=== PATIENT | female | born 1985 | race Caucasian/White ===

== ENCOUNTER 2021-03-15 07:34 | Emergency (ER) | payer SELFPAY ==
[2021-03-15] MEDS ORDERED: Sodium Chloride 0.9% 10 ML Syringe FLUSH PRN (07:57)
--- NOTE | 2021-03-15 07:57 | EDM.PDOC ---
ED HPI GENERAL MEDICAL PROBLEM - General Chief Complaint: Abdominal Pain Stated Complaint: SEVERE PAIN LOWER LEFT ABDOMEN Time Seen by Provider: 03/15/21 07:57 Source of Information: Reports: Patient, RN, RN Notes Reviewed History Limitations: Reports: No Limitations - History of Present Illness INITIAL COMMENTS - FREE TEXT/NARRATIVE: Pt presents to ER by POV with c/o sudden onset of severe sharp LLQ abdominal pain while driving to work this morning. Pt describes the pain as radiating from the left side to the LLQ. Denies fever, chills, vomiting, or back pain. Admits to nausea from the pain. Rates the pain 10/10. Nothing aggravates or alleviates her symptoms. Hx of left ovarian cyst about a year ago, no intervention or follow up. Hx of appendectomy. Pt is a G4, LMP 03/09/21. Onset: Today, Sudden Duration: Constant Location: Reports: Abdomen Quality: Reports: Ache, Sharp Severity: Severe Improves with: Reports: None Worsens with: Reports: None Associated Symptoms: Reports: No Other Symptoms Left Lower Abdomen Pain Score (Numeric/FACES): 10 - Related Data Allergies Allergy/AdvReac Type Severity Reaction Status Date / Time Sulfa (Sulfonamide Allergy Cannot Verified 03/15/21 09:29 Antibiotics) Remember Home Meds: Home Meds . [No Known Home Meds] 03/15/21 [History] Past Medical History - Past Surgical History GI Surgical History: Reports: Appendectomy Social & Family History - Family History Family Medical History: No Pertinent Family History - Tobacco Use Tobacco Use Status *Q: Current Every Day Tobacco User Tobacco Use Within Last Twelve Months: Cigarettes Packs/Tins Daily: 0.5 - Alcohol Use Alcohol Use History: Yes Alcohol Use Frequency: Socially - Recreational Drug Use Recreational Drug Use: No - Living Situation & Occupation Occupation: Employed (Nurse) ED ROS GENERAL - Review of Systems Review Of Systems: Comprehensive ROS is negative, except as noted in HPI. ED EXAM, GI/ABD - Physical Exam Exam: See Below Exam Limited By: No Limitations General Appearance: Alert, WD/WN, Anxious, Severe Distress (Due to LLQ pain), Active Emesis Eyes: Bilateral: Normal Appearance Nose: Normal Inspection Throat/Mouth: Normal Lips, Normal Voice, No Airway Compromise Head: Atraumatic, Normocephalic Neck: Normal Inspection Respiratory/Chest: No Respiratory Distress, Lungs Clear, Normal Breath Sounds, No Accessory Muscle Use, Chest Non-Tender Cardiovascular: Regular Rate, Rhythm GI/Abdominal Exam: Normal Bowel Sounds, Soft, Tender (LLQ). No: Guarding, Rigid, Rebound (Female) Exam: Deferred Rectal (Female) Exam: Deferred Back Exam: Full Range of Motion, CVA Tenderness (L). No: CVA Tenderness (R), Vertebral Tenderness Extremities: Normal Inspection Neurological: Alert, Oriented, No Motor/Sensory Deficits Psychiatric: Anxious, Tearful Skin Exam: Warm, Dry, Intact, Normal Color, No Rash Course - Vital Signs Last Recorded V/S: Last Vital Signs Temp 97 F 03/15/21 08:18 Pulse 81 03/15/21 08:18 Resp 16 03/15/21 08:18 BP 172/125 H 03/15/21 08:18 Pulse Ox 100 03/15/21 08:18 - Orders/Labs/Meds Orders: Active Orders 24 hr Category Date Time Status Peripheral IV Care [RC] . DIRECTED Care 03/15/21 07:58 Active Art Chilo Abd Pelv Scrt Cnt Comp [US] Routine Exams 03/15/21 Ordered Pelvis Non OB Ltd [US] Stat Exams 03/15/21 10:25 Ordered Transvaginal Non OB [US] Routine Exams 03/15/21 Ordered COVID-19/FLU A+B/RSV [MOLEC] Stat Lab 03/15/21 10:38 Received CULTURE URINE [RM] Stat Lab 03/15/21 08:05 Received Sodium Chloride 0.9% [Saline Flush] Med 03/15/21 07:57 Active 10 ml FLUSH ASDIRECTED PRN Peripheral IV Insertion Adult [OM.PC] Stat Oth 03/15/21 07:58 Ordered Medication Orders Sodium Chloride (Sodium Chloride 0.9% 10 Ml Syringe) 10 ml FLUSH ASDIRECTED PRN PRN Reason: Keep Vein Open Labs: Laboratory Tests 03/15/21 03/15/21 03/15/21 Range/Units 08:05 08:05 08:07 WBC 10.8 H (5.0-10.0) 10^3/uL RBC 4.57 (4.2-5.4) 10^6/uL Hgb 13.6 (12.0-16.0) g/dL Hct 41.9 (37.0-47.0) % MCV 91.7 (80-100) fL MCH 29.8 (27.0-34.0) pg MCHC 32.5 L (33.0-35.0) g/dL Plt Count 285 (150-450) 10^3/uL Neut % (Auto) 64.8 (42.2-75.2) % Lymph % (Auto) 26.0 (20.5-50.1) % [place] % (Auto) 7.3 (2-8) % Eos % (Auto) 1.5 (1.0-3.0) % Baso % (Auto) 0.4 (0.0-1.0) % Sodium (136-145) mmol/L Potassium (3.5-5.1) mmol/L Chloride (98-107) mmol/L Carbon Dioxide (21-32) mmol/L Anion Gap (7-13) mEq/L BUN (7-18) mg/dL Creatinine (0.55-1.02) mg/dL Est Cr Clr Drug Dosing mL/min Estimated GFR (MDRD) BUN/Creatinine Ratio (No establ ref range) Glucose (70-99) mg/dL Calcium (8.5-10.1) mg/dL Total Bilirubin (0.2-1.0) mg/dL AST (15-37) U/L ALT (14-59) U/L Alkaline Phosphatase (46-116) U/L Total Protein (6.4-8.2) g/dL Albumin (3.4-5.0) g/dL Globulin Albumin/Globulin Ratio Urine Color Yellow (YELLOW) Urine Appearance Slightly cloudy (CLEAR) Urine pH 5.5 (5.0-9.0) Ur Specific [place] >= 1.030 (1.005-1.030) Urine Protein Negative (NEGATIVE) Urine Glucose (UA) Negative (NEGATIVE) Urine Ketones Negative (NEGATIVE) Urine Occult Blood Small H (NEGATIVE) Urine Nitrite Negative (NEGATIVE) Urine Bilirubin Negative (NEGATIVE) Urine Urobilinogen 0.2 (0.2-1.0) mg/dL Ur Leukocyte Esterase Small H (NEGATIVE) Urine RBC 5-10 H (0-5) /HPF Urine WBC 10-20 H (0-5/HPF) /HPF Ur Epithelial Cells Many H (NOT SEEN) /HPF Amorphous Sediment Few (NOT SEEN) /HPF Urine Bacteria Moderate H (0-FEW/HPF) /HPF Urine HCG, Qual Negative 03/15/21 Range/Units 08:07 WBC (5.0-10.0) 10^3/uL RBC (4.2-5.4) 10^6/uL Hgb (12.0-16.0) g/dL Hct (37.0-47.0) % MCV (80-100) fL MCH (27.0-34.0) pg MCHC (33.0-35.0) g/dL Plt Count (150-450) 10^3/uL Neut % (Auto) (42.2-75.2) % Lymph % (Auto) (20.5-50.1) % [place] % (Auto) (2-8) % Eos % (Auto) (1.0-3.0) % Baso % (Auto) (0.0-1.0) % Sodium 142 (136-145) mmol/L Potassium 3.9 (3.5-5.1) mmol/L Chloride 104 (98-107) mmol/L Carbon Dioxide 26 (21-32) mmol/L Anion Gap 15.9 H (7-13) mEq/L BUN 16 (7-18) mg/dL Creatinine 0.87 (0.55-1.02) mg/dL Est Cr Clr Drug Dosing 89.31 mL/min Estimated GFR (MDRD) > 60 BUN/Creatinine Ratio 18.4 (No establ ref range) Glucose 111 H (70-99) mg/dL Calcium 9.1 (8.5-10.1) mg/dL Total Bilirubin 0.2 (0.2-1.0) mg/dL AST 14 L (15-37) U/L ALT 28 (14-59) U/L Alkaline Phosphatase 80 (46-116) U/L Total Protein 7.5 (6.4-8.2) g/dL Albumin 3.8 (3.4-5.0) g/dL Globulin 3.7 Albumin/Globulin Ratio 1.0 Urine Color (YELLOW) Urine Appearance (CLEAR) Urine pH (5.0-9.0) Ur Specific [place] (1.005-1.030) Urine Protein (NEGATIVE) Urine Glucose (UA) (NEGATIVE) Urine Ketones (NEGATIVE) Urine Occult Blood (NEGATIVE) Urine Nitrite (NEGATIVE) Urine Bilirubin (NEGATIVE) Urine Urobilinogen (0.2-1.0) mg/dL Ur Leukocyte Esterase (NEGATIVE) Urine RBC (0-5) /HPF Urine WBC (0-5/HPF) /HPF Ur Epithelial Cells (NOT SEEN) /HPF Amorphous Sediment (NOT SEEN) /HPF Urine Bacteria (0-FEW/HPF) /HPF Urine HCG, Qual Meds: Medications Generic Name Dose Route Start Last Admin Trade Name Dhiraj PRN Reason Stop Dose Admin Sodium Chloride 10 ml 03/15/21 07:57 Sodium Chloride 0.9% 10 Ml Syringe FLUSH ASDIRECTED PRN Keep Vein Open Discontinued Medications Generic Name Dose Route Start Last Admin Trade Name Freq PRN Reason Stop Dose Admin Fentanyl 50 mcg 03/15/21 08:38 03/15/21 08:45 Fentanyl 100 Mcg/2 Ml Sdv IVPUSH 03/15/21 08:39 50 mcg ONETIME ONE Administration Protocol Fentanyl 50 mcg 03/15/21 09:19 03/15/21 09:28 Fentanyl 100 Mcg/2 Ml Sdv IVPUSH 03/15/21 09:20 50 mcg ONETIME ONE Administration Protocol Fentanyl 100 mcg 03/15/21 10:31 03/15/21 10:37 Fentanyl 100 Mcg/2 Ml Sdv IVPUSH 03/15/21 10:32 50 mcg ONETIME ONE Administration Protocol Fentanyl 100 mcg 03/15/21 10:31 Fentanyl 100 Mcg/2 Ml Sdv IVPUSH 03/15/21 10:32 ONETIME ONE Protocol Hydromorphone HCl 1 mg 03/15/21 07:59 03/15/21 08:34 Hydromorphone 1 Mg/Ml Syringe IVPUSH 03/15/21 08:00 1 mg ONETIME ONE Administration Hydromorphone HCl 1 mg 03/15/21 08:24 03/15/21 08:25 Hydromorphone 1 Mg/Ml Syringe IVPUSH 03/15/21 08:25 1 mg ONETIME ONE Administration Sodium Chloride 1,000 mls @ 999 mls/hr 03/15/21 07:58 03/15/21 08:20 Normal Saline IV 03/15/21 08:58 999 mls/hr .BOLUS ONE Administration Sodium Chloride 1,000 mls @ 999 mls/hr 03/15/21 09:10 03/15/21 09:27 Normal Saline IV 03/15/21 10:10 999 mls/hr .BOLUS ONE Administration Ketamine HCl 50 mg 03/15/21 09:00 03/15/21 09:13 Ketamine 500 Mg/10 Ml Mdv IV 03/15/21 09:01 50 mg ONETIME ONE Administration Ketamine HCl 50 mg 03/15/21 09:15 03/15/21 09:10 Ketamine 500 Mg/10 Ml Mdv IV 03/15/21 09:16 50 mg ONETIME ONE Administration Ketorolac Tromethamine 30 mg 03/15/21 07:58 03/15/21 08:20 Ketorolac 30 Mg/Ml Sdv IVPUSH 03/15/21 07:59 30 mg ONETIME ONE Administration Ondansetron HCl 4 mg 03/15/21 07:58 03/15/21 08:23 Ondansetron 4 Mg/2 Ml Sdv IV 03/15/21 07:59 4 mg ONETIME ONE Administration Ondansetron HCl Confirm 03/15/21 09:42 03/15/21 09:47 Ondansetron 4 Mg/2 Ml Sdv Administered 03/15/21 09:43 Not Given Dose 4 mg .ROUTE .STK-MED ONE Ondansetron HCl 4 mg 03/15/21 09:45 03/15/21 09:46 Ondansetron 4 Mg/2 Ml Sdv IVPUSH 03/15/21 09:46 4 mg ONETIME ONE Administration Promethazine HCl 25 mg 03/15/21 10:17 03/15/21 10:22 Promethazine 25 Mg/Ml Sdv IM 03/15/21 10:18 25 mg ONETIME ONE Administration - Radiology Interpretation Free Text/Narrative:: [facility] [place] [facility] Final Radiology Report Call: [phone] assistance Online chat: [email or web address] Name: CECI MOYER Age: 35Years F Date: 03/15/2021 SSN: -- : [id number] Study: CT ABDOMEN PELVIS WO CONT Requesting Physician: THUY REY Images: [id number] Addl Studies: Provided Clinical History: Severe LLQ abdominal pain Contrast: Without Contrast Medium: Contrast Amount: Contrast Method: Page 1 of 2 PROCEDURE INFORMATION: Exam: CT Abdomen And Pelvis Without Contrast Exam date and time: 03/15/2021 9:33 AM Age: 35 years old Clinical indication: Abdominal pain; Localized; Left lower quadrant (llq); Prior surgery; Surgery date: 6+ months; Surgery type: Appendectomy; Additional info: Severe llq abdominal pain TECHNIQUE: Imaging protocol: Computed tomography of the abdomen and pelvis without contrast. Radiation optimization: All CT scans at this facility use at least one of these dose optimization techniques: automated exposure control; mA and/or kV adjustment per patient size (includes targeted exams where dose is matched to clinical indication); or iterative reconstruction. COMPARISON: No relevant prior studies available. FINDINGS: Limitations: None. Liver: Normal. Gallbladder and bile ducts: Normal. Pancreas: Normal. Spleen: Normal. Adrenal glands: Normal. Kidneys and ureters: Normal. Stomach and bowel: Normal. Appendix: There has been prior appendectomy. Intraperitoneal space: There is a small amount of low-density fluid in the retrouterine cul-de-sac and in the region of the left adnexa. CECI MOYER | Final Radiology Report CONFIDENTIALITY STATEMENT This report is intended only for use by the referring physician, and only in accordance with law. If you received this in error, call [phone]. Page 2 of 2 Vasculature: The vessels have normal caliber. There is mild calcification in the distal aorta and proximal right common iliac artery. Lymph nodes: None enlarged or otherwise suspicious. Urinary bladder: Normal. Reproductive: Normal appearance of the uterus and right ovary. There is a complex mass that appears to be associated with the left ovary positioned posterior and extending from just to the right of midline to left of midline got contains macro calcification and fat, overall measuring about 6.4 x 6.5 x 3.9 cm. The completely fatty component measures about 3.4 cm. The margins of the soft tissue component associated with the mass extending cephalad and to the left have a "cauliflower" appearance with irregular borders. Bones/joints: Lumbosacral disc space narrowing with endplate sclerosis and vertebral spurring. No suspicious stenosis. The bones are otherwise unremarkable. Soft tissues: No mass or abdominal hernia. IMPRESSION: 1. 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 Prompt outpatient gynecologic referral and evaluation is recommended if this finding is not previously known or previously evaluated. 2. Incidentally noted lumbosacral degenerative disc disease without malalignment or significant appearing stenosis. Thank you for allowing us to participate in the care of your patient. Dictated and Authenticated by: Travis Bagley MD 03/15/2021 10:22 AM Central Time ([place] & [place]) - Re-Assessments/Exams Free Text/Narrative Re-Assessment/Exam: 03/15/21 09:07 Pt was extraordinarily difficulty to achieve adequate pain control. After Dilaudid 2mg (1mg x2 doses), Fentanyl 50mcg, and Ketamine 100mg (50mg x2 doses) the pt could finally lay still, but continued to report pain 09/12. Concerning for kidney stone vs ovarian torsion. 03/15/21 10:[address] the pt's pain had returned and she was vomiting. Pt was given Fentanyl 50mcg IVP, and Promethazine 25mg IM. Pt continues crying, wailing, and calling out in pain. I explained to her that she is receiving multiple doses of very strong pain medications, and I have to balance her pain control with her safety due to potential for airway protection and breathing. Pt states she understands. 03/15/21 10:47 CT report called by radiologist Clay Bagley with large left ovarian mass consistent with a teratoma, concerning for malignant features, and possible torsion given the severe uncontrollable pain. No Client Service And Consulting Manager service available in [place]. No bed available at [facility]. Dr. Gorman accepts the pt as a transfer to [facility] via [facility] air ambulance. Departure - Departure Time of Disposition: 10:51 Disposition: DC/Tfer to Acute Hospital 02 Condition: Serious, Critical Clinical Impression: Ovarian mass, left - Discharge Information *PRESCRIPTION DRUG MONITORING PROGRAM REVIEWED*: Not Applicable *COPY OF PRESCRIPTION DRUG MONITORING REPORT IN PATIENT ARELY: Not Applicable Forms: ED Department Discharge, Interfacility Transfer ANUSHAALA Sepsis Event Note (ED) - Focused Exam Vital Signs: Vital Signs Temp Pulse Resp BP Pulse Ox 03/15/21 08:18 97 F 81 16 172/125 H 100 - My Orders Last 24 Hours: My Active Orders 03/15/21 Art Chilo Abd Pelv Scrt Cnt Comp [US] Routine Transvaginal Non OB [US] Routine 03/15/21 07:57 Sodium Chloride 0.9% [Saline Flush] 10 ml FLUSH ASDIRECTED PRN 03/15/21 07:58 Peripheral IV Care [RC] . DIRECTED Peripheral IV Insertion Adult [OM.PC] Stat 03/15/21 08:05 CULTURE URINE [RM] Stat 03/15/21 10:25 Pelvis Non OB Ltd [US] Stat 03/15/21 10:38 COVID-19/FLU A+B/RSV [MOLEC] Stat - Assessment/Plan Last 24 Hours: My Active Orders 03/15/21 Art Chilo Abd Pelv Scrt Cnt Comp [US] Routine Transvaginal Non OB [US] Routine 03/15/21 07:57 Sodium Chloride 0.9% [Saline Flush] 10 ml FLUSH ASDIRECTED PRN 03/15/21 07:58 Peripheral IV Care [RC] . DIRECTED Peripheral IV Insertion Adult [OM.PC] Stat 03/15/21 08:05 CULTURE URINE [RM] Stat 03/15/21 10:25 Pelvis Non OB Ltd [US] Stat 03/15/21 10:38 COVID-19/FLU A+B/RSV [MOLEC] Stat
[2021-03-15] MEDS ORDERED: Sodium Chloride 0.9% 1,000 ML IV ONE ×2 (07:58→09:10)
[2021-03-15] MEDS ORDERED: Ketorolac 30 MG/ML SDV IVPUSH ONE (07:58)
[2021-03-15] MEDS ORDERED: Ondansetron 4 MG/2 ML SDV IV ONE (07:58)
[2021-03-15] MEDS ORDERED: HYDROmorphone 1 MG/ML Syringe IVPUSH ONE ×2 (07:59→08:24)
[2021-03-15] MEDS ORDERED: fentaNYL 100 MCG/2 ML SDV IVPUSH ONE ×3 (08:38→10:31)
[2021-03-15] MEDS ORDERED: Ketamine 500 mg/10 ML MDV IV ONE ×2 (09:00→09:15)
[2021-03-15 09:39] LABS: ANION GAP 15.9 mEq/L (7-13); CHLORIDE,CL 104 mmol/L (98-107); SODIUM,NA 142 mmol/L (136-145)
[2021-03-15] MEDS ORDERED: Ondansetron 4 MG/2 ML SDV ONE (09:42)
[2021-03-15] MEDS ORDERED: Ondansetron 4 MG/2 ML SDV IVPUSH ONE (09:45)
[2021-03-15] MEDS ORDERED: Promethazine 25 MG/ML SDV IM ONE (10:17)
--- NOTE | 2021-03-15 10:23 | CT ---
PROCEDURE INFORMATION: Exam: CT Abdomen And Pelvis Without Contrast Exam date and time: 03/15/2021 9:33 AM Age: 35 years old Clinical indication: Abdominal pain; Localized; Left lower quadrant (llq); Prior surgery; Surgery date: 6+ months; Surgery type: Appendectomy; Additional info: Severe llq abdominal pain TECHNIQUE: Imaging protocol: Computed tomography of the abdomen and pelvis without contrast. Radiation optimization: All CT scans at this facility use at least one of these dose optimization techniques: automated exposure control; mA and/or kV adjustment per patient size (includes targeted exams where dose is matched to clinical indication); or iterative reconstruction. COMPARISON: No relevant prior studies available. FINDINGS: Limitations: None. Liver: Normal. Gallbladder and bile ducts: Normal. Pancreas: Normal. Spleen: Normal. Adrenal glands: Normal. Kidneys and ureters: Normal. Stomach and bowel: Normal. Appendix: There has been prior appendectomy. Intraperitoneal space: There is a small amount of low-density fluid in the retrouterine cul-de-sac and in the region of the left adnexa. Vasculature: The vessels have normal caliber. There is mild calcification in the distal aorta and proximal right common iliac artery. Lymph nodes: None enlarged or otherwise suspicious. Urinary bladder: Normal. Reproductive: Normal appearance of the uterus and right ovary. There is a complex mass that appears to be associated with the left ovary positioned posterior and extending from just to the right of midline to left of midline got contains macro calcification and fat, overall measuring about 6.4 x 6.5 x 3.9 cm. The completely fatty component measures about 3.4 cm. The margins of the soft tissue component associated with the mass extending cephalad and to the left have a "cauliflower" appearance with irregular borders. Bones/joints: Lumbosacral disc space narrowing with endplate sclerosis and vertebral spurring. No suspicious stenosis. The bones are otherwise unremarkable. Soft tissues: No mass or abdominal hernia. IMPRESSION: 1. 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 Prompt outpatient gynecologic referral and evaluation is recommended if this finding is not previously known or previously evaluated. 2. Incidentally noted lumbosacral degenerative disc disease without malalignment or significant appearing stenosis.
[2021-03-15] MEDS: fentaNYL 100 MCG/2 ML SDV IVPUSH ONE ×2 (10:36→10:37)
[2021-03-15 11:30] LABS: CORONAVIRUS COVID-19 NAA NEGATIVE (NEGATIVE); RESPIRATORY SYNCYTIAL VIR NAA NEGATIVE (NEGATIVE)
--- NOTE | 2021-03-15 13:20 | US ---
EXAMINATION: Transvaginal Non OB SEX: Female AGE: 35 years CLINICAL HISTORY: 35 year old female with "Left ovarian mass" (CT exam) and severe pain. R/O ovarian torsion. LMP 05 March 2021. test "negative". Interpretation: Abnormal. 1. *Asymmetrically large, mixed density (solid with central cystic components) left adnexal mass lesion confirmed, that measures 4.07 x 7.5 cm diameter and is surrounded with fluid (blood?) worrisome for possible ectopic . Peripheral vascularity but cannot entirely exclude an incomplete torsion of the left ovary from the differential diagnosis. 2. Dominant central 2.2 cm and smaller peripheral 8.1 mm and 6.0 mm diameter cysts left ovary. 2. Midline uterus is normal size/anatomic configuration and empty i.e. no sign of intrauterine gestational sac or endometrial proliferation. No endometrial polyps. No myometrial mass lesion. 3. Uterus measures 7.8 cm L x 5.9 cm W x 4.3 cm AP diameter. 4. Normal right ovary (decidedly smaller) measuring 3.4 cm L x 2.0 cm W x 1.9 cm AP diameter with a discrete 11 mm x 14 mm diameter hypoechoic cyst. CONCLUSION: Bilateral ovarian cysts. Abnormal left adnexal mass with adjacent fluid in the ipsilateral cul-de-sac. Note: There is "vascular flow" both ovaries however consider incomplete ovarian torsion versus ectopic . Close clinical correlation please.
--- NOTE | 2021-03-15 13:20 | US ---
EXAMINATION: Pelvis Non OB Ltd SEX: Female AGE: 35 years Addendum report: "Cystic teratoma left ovary" certainly a differential consideration but must exclude the acute diagnostic entities suggested sonographically i.e. r/o ectopic and left ovarian torsion. Clinical/laboratory follow-up please.
== END 2021-03-15 11:35 ==
LOC: DL.ED 07:34
DX: N83.202 Unspecified ovarian cyst, left side (principal); Z88.2 Allergy status to sulfonamides; Z72.0 Tobacco use; Z20.822 Contact with and (suspected) exposure to COVID-19
CPT/HCPCS: 0241U; 36415; 74176; 76830; 76857; 80053; 81001; 81025; 85025; 87086; 93975; 96372; 96374; 96375; 96376; 99285; J1170; J1885; J2405; J2550; J3010; J7030